=== PATIENT | female | born 1990 | race Caucasian/White ===

== ENCOUNTER 2016-11-10 08:58 | Outpatient (CLI) | payer OTHER ==
[2016-11-10 09:23] LABS: BILIRUBIN,URINE NEGATIVE (NEGATIVE)
[2016-11-10 09:34] LABS: WBC,URINE 0-3 /HPF (0-5)
[2016-11-10 10:29] LABS: BASOPHILS % (AUTO) 0.5 %; EOSINOPHILS # (AUTO) 0.1 10^3/uL (0.0-0.7); EOSINOPHILS % (AUTO) 1.6 %; HCT - HEMATOCRIT 38.2 % (37.0-47.0); HGB - HEMOGLOBIN 12.9 g/dL (12.0-16.0); LYMPHOCYTES % (AUTO) 25.7 %; MEAN CORPUSCULAR HEMOGLOBIN 28.3 pg (27.0-31.0); MEAN CORPUSCULAR HGB CONC 33.8 g/dL (32.0-36.0); MEAN CORPUSCULAR VOLUME 83.8 fL (81.0-99.0); MEAN PLATELET VOLUME 7.3 fL (7.9-10.8); MONOCYTES # (AUTO) 0.4 10^3/uL (0.0-1.0); MONOCYTES % (AUTO) 5.1 %; NEUTROPHILS # (AUTO) 5.2 10^3/uL (1.5-6.6); NEUTROPHILS % (AUTO) 67.1 %; RED BLOOD COUNT 4.57 10^6/uL (4.20-5.40); RED CELL DISTRIBUTION WIDTH 14.9 % (12.0-15.0); UNCORRECTED WHITE BLOOD COUNT 7.8 x10^3/uL; WHITE BLOOD COUNT 7.8 x10^3/uL (4.8-10.8)
[2016-11-10 10:47] LABS: HEMOGLOBIN A1C 0.49 g/dL
[2016-11-10 11:06] LABS: URIC ACID 2.6 mg/dL (2.6-7.2)
[2016-11-15 20:31] LABS: TEST RESULT REPORT
== END 2016-11-10 08:59 | disposition home or self-care (01) ==
LOC: LAB 08:58
PROVIDERS: ATTEND Obstetrics & Gynecology
DX: Z36 Encounter for antenatal screening of mother (principal); R80.9 Proteinuria, unspecified
CPT/HCPCS: 36415; 81001; 81599; 82570; 82950; 83036; 83615; 84156; 84450; 84460; 84550; 85025; 86762; 86780; 86850; 86900; 86901; 87340; 87389

== ENCOUNTER 2016-11-23 09:39 | Outpatient (CLI) | payer OTHER | END 2016-11-23 09:40 | disposition home or self-care (01) | LOC: LAB.R 09:39 | PROVIDERS: ATTEND Obstetrics & Gynecology | DX: Z11.3 Encounter for screening for infections with a predominantly sexual mode of transmission (principal) | CPT/HCPCS: 87491; 87591 ==

== ENCOUNTER 2016-12-21 09:45 | Outpatient (CLI) | payer OTHER ==
[2016-12-22 12:51] LABS: TEST RESULT REPORT
== END 2016-12-21 09:46 | disposition home or self-care (01) ==
LOC: LAB 09:45
PROVIDERS: ATTEND Obstetrics & Gynecology
DX: Z3A.15 15 weeks gestation of pregnancy (principal)
CPT/HCPCS: 36415; 81599

== ENCOUNTER 2017-04-03 11:02 | Outpatient (CLI) | payer OTHER ==
--- NOTE | 2017-04-05 15:46 | Ultrasound Report ---
OB FOLLOWUP: 04/03/2017 CLINICAL INDICATION: Size greater than dates. COMPARISON: 01/23/2017 TECHNIQUE: Real-time scanning was performed with sales representative consultant static images obtained. LAST MENSTRUAL PERIOD 09/03/2016 CLINICAL AGE 30 weeks 2 days US AGE 32 weeks 1 day EFW HADLOCK 1857 grams EFW% HADLOCK 87% HEART RATE 159 bpm EDC 06/10/2017 US EDC 05/28/2017 BPD HADLOCK 31 weeks 5 days; Mean mm 79 HC HADLOCK 33 weeks 2 days; Mean mm 300 AC HADLOCK 31 weeks 4 days; Mean mm 275 FL HADLOCK 32 weeks 0 days; Mean mm 62 PRESENTATION cephalic. PLACENTAL LOCATION posterior. CERVICAL LENGTH -- AMNIOTIC FLUID 12.2 cm; MVP 3.2 cm FINDINGS There is a single viable intrauterine gestation, in cephalic presentation. heart rate is 159 BPM. The placenta is posterior, without evidence of previa. Amniotic fluid volume is normal, with an ALLAN of 12.2. By size, the fetus measures 32 weeks 1 day (30 weeks 2 days by previous sonogram ). Estimated weight by Hadlock method is 1857 grams. IMPRESSION: SINGLE VIABLE INTRAUTERINE GESTATION, MEASURING 1 WEEK 6 DAYS LARGER THAN EXPECTED BY PREVIOUS SONOGRAM. NORMAL ALLAN. TD: 04[facility]03/2017 17:18 [facility]
== END 2017-04-03 11:03 | disposition home or self-care (01) ==
LOC: DI 11:02
PROVIDERS: ATTEND Obstetrics & Gynecology
DX: O26.843 Uterine size-date discrepancy, third trimester (principal)
CPT/HCPCS: 76816

== ENCOUNTER 2017-04-13 07:28 | Outpatient (CLI) | payer OTHER | END 2017-04-13 07:29 | disposition home or self-care (01) | LOC: LAB 07:28 | PROVIDERS: ATTEND Obstetrics & Gynecology | DX: O99.810 Abnormal glucose complicating pregnancy (principal) | CPT/HCPCS: 36415; 82951 ==

== ENCOUNTER 2017-05-07 08:00 | Outpatient (CLI) | payer OTHER | END 2017-05-07 08:01 | LOC: LAB.R 08:00 | PROVIDERS: ATTEND Obstetrics & Gynecology | DX: Z36.85 Encounter for antenatal screening for Streptococcus B (principal) | CPT/HCPCS: 87081 ==

== ENCOUNTER 2017-06-01 18:02 | Inpatient (IN) | payer OTHER ==
[2017-06-01] MEDS ORDERED: SODIUM CHLORIDE FLUSH 0.9% 10 ML SYRINGE IVP PRN (19:14)
[2017-06-01] MEDS ORDERED: ONDANSETRON 4 MG/2 ML VIAL IVP PRN (19:14)
[2017-06-01] MEDS ORDERED: fentaNYL 100 MCG/2 ML VIAL IVP PRN (19:14)
[2017-06-01] MEDS ORDERED: DINOPROSTONE 10 MG SUPP VG ONE (19:14)
[2017-06-01] MEDS ORDERED: ZOLPIDEM 5 MG TABLET PO PRN (19:17)
--- NOTE | 2017-06-01 19:43 | PROVIDER PROGRESS NOTE ---
Labor Progress Note - Uterine Monitoring Uterine Monitoring Mode: positive: External toco Contraction Frequency (min/apart): Irregular Contraction Intensity: positive: Mild to moderate Uterine Resting Tone: positive: Soft - Monitoring Monitor Mode: positive: External ultrasound Heart Rate Baseline: 140's Heart Rate Variability: positive: Moderate (6-25 bmp) Accelerations: positive: Present, 15x15 Decelerations: positive: None Strip Review: positive: Category I - Labor Progress Note Labor Progress Note/Additional Text: 27 yo with a 39w0d IUP. Elective induction of labor. Cervix remote from delivery. Will proceed to induction of labor with cervidil. H&P was dictated 05/28/2017 (Reference number [id number]) and not showing up on [employer]. Draw CBC with type and hold. Epidural prior to AROM. Expect .
[2017-06-01] MEDS: LACTATED RINGERS 1,000 ML IV SCH (21:24)
[2017-06-01] MEDS: SODIUM CHLORIDE FLUSH 0.9% 10 ML SYRINGE IVP SCH (21:26)
[2017-06-01 21:48] LABS: BASOPHILS % (AUTO) 0.3 %; EOSINOPHILS # (AUTO) 0.1 10^3/uL (0.0-0.7); EOSINOPHILS % (AUTO) 1.2 %; HGB - HEMOGLOBIN 12.8 g/dL (12.0-16.0); LYMPHOCYTES # (AUTO) 2.3 10^3/uL (1.5-3.5); LYMPHOCYTES % (AUTO) 26.4 %; MEAN CORPUSCULAR HEMOGLOBIN 28.3 pg (27.0-31.0); MEAN CORPUSCULAR HGB CONC 33.5 g/dL (32.0-36.0); MEAN CORPUSCULAR VOLUME 84.3 fL (81.0-99.0); MEAN PLATELET VOLUME 7.6 fL (7.9-10.8); MONOCYTES # (AUTO) 0.6 10^3/uL (0.0-1.0); MONOCYTES % (AUTO) 7.3 %; NEUTROPHILS # (AUTO) 5.7 10^3/uL (1.5-6.6); NEUTROPHILS % (AUTO) 64.8 %; PLT - PLATELET COUNT 198 10^3/uL (130-450); RED BLOOD COUNT 4.51 10^6/uL (4.20-5.40); RED CELL DISTRIBUTION WIDTH 24.1 % (12.0-15.0); WHITE BLOOD COUNT 8.8 x10^3/uL (4.8-10.8)
[2017-06-01 22:05] LABS: PLATELET ESTIMATE, MANUAL NORMAL (130-450,000) (NORMAL); PLATELET MORPHOLOGY NORMAL APPEARANCE (NORMAL)
--- NOTE | 2017-06-02 06:01 | PROVIDER PROGRESS NOTE ---
Labor Progress Note - Uterine Monitoring Uterine Monitoring Mode: positive: External toco Contraction Frequency (min/apart): Q4 Contraction Intensity: positive: Mild to moderate Uterine Resting Tone: positive: Soft - Monitoring Monitor Mode: positive: External ultrasound Heart Rate Baseline: 130's Heart Rate Variability: positive: Moderate (6-25 bmp) Accelerations: positive: Present, 15x15 Decelerations: positive: None Strip Review: positive: Category I - Vaginal Exam Dilation (in cm): 1 (Per RN 22:00) Effacement (%): 50 Station: -2 Cervical Position: Posterior - Labor Progress Note Labor Progress Note/Additional Text: 27 yo with a 39w0d IUP Desired induction of labor Reassuring maternal and status Cervix remote from delivery Cervidil placed by RN at 22:18 Expect Still looking for 05/28/2017 H&P dictation- reference number [id number] Labs, EKG, Meds, Allergy - Lab Results Fish Bones: 06/01/17 21:15 Other Lab Results: Lab Results x24hrs 06/01/17 Range/Units 21:15 WBC 8.8 (4.8-10.8) x10^3/uL RBC 4.51 (4.20-5.40) 10^6/uL Hgb 12.8 (12.0-16.0) g/dL Hct 38.1 (37.0-47.0) % MCV 84.3 (81.0-99.0) fL MCH 28.3 (27.0-31.0) pg MCHC 33.5 (32.0-36.0) g/dL RDW 24.1 H (12.0-15.0) % Plt Count 198 (130-450) 10^3/uL MPV 7.6 L (7.9-10.8) fL Neut # 5.7 (1.5-6.6) 10^3/uL Lymph # 2.3 (1.5-3.5) 10^3/uL Converse # 0.6 (0.0-1.0) 10^3/uL Eos # 0.1 (0.0-0.7) 10^3/uL Baso # 0.0 (0.0-0.1) 10^3/uL Absolute Nucleated RBC 0.00 x10^3/uL Nucleated RBC % 0.0 /100WBC Platelet Estimate NORMAL (130-450,000) (NORMAL) Platelet Morphology NORMAL APPEARANCE (NORMAL) RBC Morph Micro Appear 1+ SCHISTOCYTES (NORMAL) - Medications Medications: Ambulatory Orders Medication Instructions Recorded Confirmed Pnv95/Ferrous Fumarate/FA 02/20/14 02/20/14 [ Multivitamins Tablet] cephALEXin [Cephalexin] 500 mg PO QID #28 tablet 11/19/15 - Allergy Allergy: Allergies Allergy/AdvReac Type Severity Reaction Status Date / Time No Known Drug Allergies Allergy Verified 02/20/14 16:23 Pnv95/Ferrous Fumarate/FA [ Multivitamins Tablet] 02/20/14 cephALEXin [Cephalexin] 500 mg PO QID #28 tablet 11/19/15
[2017-06-02] MEDS: LACTATED RINGERS 1,000 ML IV SCH (10:09)
--- NOTE | 2017-06-02 10:54 | PROVIDER PROGRESS NOTE ---
Labor Progress Note - Uterine Monitoring Uterine Monitoring Mode: positive: External toco Contraction Frequency (min/apart): Irregular (difficult to interpret) Contraction Intensity: positive: Mild to moderate Uterine Resting Tone: positive: Soft - Monitoring Monitor Mode: positive: External ultrasound Heart Rate Variability: positive: Moderate (6-25 bmp) Accelerations: positive: Present, 15x15 Decelerations: positive: None Strip Review: positive: Category I - Vaginal Exam Dilation (in cm): 3 (Per RN) Effacement (%): 80 Station: -2 - Labor Progress Note Labor Progress Note/Additional Text: 27 yo with a 39w0d IUP Elective induction of labor Improved cervical change Start pitocin Expect Reassuring and maternal status
[2017-06-02] MEDS ORDERED: OXYTOCIN/SODIUM CHLORIDE 500 ML IV SCH (11:00)
[2017-06-02] MEDS: SODIUM CHLORIDE FLUSH 0.9% 10 ML SYRINGE IVP SCH (13:19)
--- NOTE | 2017-06-02 16:35 | PREOP HISTORY & PHYSICAL ---
DATE OF ADMISSION: 06/01/2017 Physician: Maryam Bran DO IDENTIFICATION: A 27-year-old G7, P4, 0-2-4 with a 38-6/7-week intrauterine . EDC is 06/09/2017. HISTORY OF PRESENT ILLNESS: Patient is a patient of [facility] who presented for routine visit on 05/28/2017. Patient's has been essentially unremarkable. However, in the last few weeks she has been having a difficult time with respect to back pain and getting satisfactory sleep secondary to the baby making her body feel very uncomfortable. At this point in time patient would like to proceed with elective induction of labor at about 39 weeks' gestation. She states that the baby, who is female, with anticipated name of Franc, is moving well. She denies any vaginal bleeding or loss of fluid. She has been having irregular contractions. Cervical examination today on 05/28/2017 at 38 weeks 2 days revealed that she is 1-2 cm dilated, very thick, and -3 station. Discussed with patient her options to do cervical ripening on the evening of 06/01/2017 and will begin to start Pitocin or rupture of membranes hopefully on 06/02/2017. After all her questions were asked and answered to her satisfaction, she verbalized her desire to proceed with induction of labor. PAST MEDICAL HISTORY: History of gestational hypertension, but this has resolved after completion of her . PAST SURGICAL HISTORY: None. ALLERGIES: NO KNOWN DRUG ALLERGIES. MEDICATIONS: vitamins. SOCIAL HISTORY: She denied any tobacco, alcohol, or illicit drug use. She is a homemaker, and she is to Mainor, who is in the [place]. They have 4 other children, daughters, Ganga, Janet, and Hayden. The youngest child currently is a little boy named Chris. Patient and her family anticipated to have their next 3-year assignment in [place], [place]. They anticipate moving in July of this year. Patient's pharmacy of choice is [facility] in [place], [place]. PAST OBSTETRICAL HISTORY: Two spontaneous abortions and 4 term spontaneous vaginal deliveries, the largest baby weighing 7 pounds 14 ounces at time of delivery. Patient did have a history of mastitis. PAST GYNECOLOGICAL HISTORY: She denied any abnormal Pap smears or sexually transmitted disease. FAMILY HISTORY: She denied any female carcinoma. REVIEW OF SYSTEMS: Negative unless otherwise stated. She does deny any nausea , vomiting, fevers, chills, diarrhea, constipation. OBJECTIVE VITAL SIGNS: Height 63 inches, weight 201 pounds, BMI is 35.6, blood pressure 136/80. GENERAL: Patient is a well-developed, well-nourished, female, in no apparent distress. She is alert and oriented x3. She is very pleasant and easy to speak to. CARDIOVASCULAR: Rate is regular. No murmurs, rubs. PULMONARY: Lungs are clear to auscultation bilaterally. ABDOMEN: Gravid, nontender. Fundal height today is 38 cm, which is consistent with her being 38 weeks' gestation. Fetus is vertex by Mando's. EFW is 8 pounds. CERVICAL: Cervical examination again reveals she is 1-2 cm dilated, very thick and -3 station. Cervix is moderately soft to firm. It is posterior. records reveal her blood type is O positive, antibody screen negative. HIV negative. Hepatitis B surface antigen is negative. RPR nonreactive, rubella immune, GBS is negative. anatomical survey is consistent with dates and within normal limits. There is no placenta previa. Her 1-hour GTT was 129 and her 3-hour showed a fasting of 83, 1 hour of 195, 2-hour 155, and 3- hour of 98. Hemoglobin A1c was 5.4%. Her fasting sugars have been in the 70s- 80s and 2-hour postprandials are in the 100s. ASSESSMENT 1. A 27-year-old G7, P4-0-2-4 with a 38-6/7-week intrauterine . 2. Gestational diabetes mellitus, class A1. 3. Desires induction of labor. 4. Cervix remote from delivery. PLAN 1. We will proceed to elective induction of labor with Cervidil on 06/01/2017. 2. Anticipate starting Pitocin once her cervix has effaced. Expect spontaneous vaginal delivery. 3. Will be cautious of patient getting mastitis. May want to consider placing her on prophylactic dicloxacillin. TD: 05/28/2017 16:28 [facility]
--- NOTE | 2017-06-02 17:49 | PROVIDER PROGRESS NOTE ---
Labor Progress Note - Uterine Monitoring Uterine Monitoring Mode: positive: External toco Contraction Frequency (min/apart): Q2-3 (pitocin 6 mU/min) Contraction Intensity: positive: Mild to moderate Uterine Resting Tone: positive: Soft - Monitoring Monitor Mode: positive: External ultrasound Heart Rate Variability: positive: Moderate (6-25 bmp) Accelerations: positive: Present, 15x15 Decelerations: positive: None - Vaginal Exam Dilation (in cm): 3 Effacement (%): 50 Station: -2 Cervical Position: Posterior - Labor Progress Note Labor Progress Note/Additional Text: 27 yo with a 39w0d IUP Improved cervical change after 1 dose of cytotec and pitocin AROM- clear fluid Expect
--- NOTE | 2017-06-02 21:06 | PROVIDER PROGRESS NOTE ---
Labor Progress Note - Uterine Monitoring Uterine Monitoring Mode: positive: External toco Contraction Frequency (min/apart): Q 2-4 min Contraction Intensity: positive: Moderate to strong - Monitoring Monitor Mode: positive: External ultrasound Heart Rate Baseline: 130's Heart Rate Variability: positive: Moderate (6-25 bmp) Accelerations: positive: Present, 15x15 Decelerations: positive: None Strip Review: positive: Category I - Vaginal Exam Dilation (in cm): (Deferred) - Labor Progress Note Labor Progress Note/Additional Text: 27 yo with a 39w0d IUP Elective induction of labor AROM- clear fluid. No S/s of chorioamnionitis Continue pitocin Expect
[2017-06-02] MEDS ORDERED: MAGNESIUM HYDROXIDE 2,400 MG/30 ML UDC PO PRN (22:34)
[2017-06-02] MEDS ORDERED: HYDROcod/ACETAM 5/325 MG TABLET PO PRN (22:34)
[2017-06-02] MEDS ORDERED: OXYTOCIN/SODIUM CHLORIDE 250 ML IV ONE (22:34)
--- NOTE | 2017-06-02 22:34 | DELIVERY NOTE ---
Delivery Note - Labor Labor: positive: Augmented by ARM, Augmented by oxytocin - Infant Delivery Method Delivery Method: positive: Spontaneous vaginal delivery - Presentation Presentation: positive: Vertex - Nuchal Cord Nuchal Cord: positive: None - Amniotic Fluid Description Amniotic Fluid Description: positive: Clear - Episiotomy Type Episiotomy Type: positive: None - Laceration Laceration: positive: None - Delivery Outcome Delivery Outcome: positive: Livebirth - [place] Lancaster sex: positive: Female : 9 : 9 - Cord Cord: positive: 3 vessels - Placenta Placenta: positive: Intact, Spontaneous - Estimated Blood Loss Estimated Blood Loss (in cc): 100 - Post Delivery Events Post Delivery Events: positive: No post delivery events - Delivery Comments (Free Text/Narrative) Delivery Comments (Free Text/Narrative): 27 yo with a 38w6d IUP was electively induced. Given 1 dose of cervidil overnight, pitocin the next day, and then AROM. Patient delivered without pain meds. order to delivery supervisor. Intact perineum. Placenta delivered spontaneously, intact with 3VC. EBL 100 mL. Apgars 9/9. No complications.
[2017-06-02] MEDS ORDERED: LACTATED RINGERS 1,000 ML IV SCH (23:00)
[2017-06-02] MEDS: ACETAMINOPHEN 325 MG TABLET PO PRN (23:34)
[2017-06-03] MEDS: ACETAMINOPHEN 325 MG TABLET PO PRN ×3 (04:02→18:19)
[2017-06-03] MEDS: DOCUSATE SODIUM 100 MG CAPSULE PO SCH ×2 (09:19→22:42)
[2017-06-03] MEDS: LACTATED RINGERS 1,000 ML IV SCH ×2 (10:18)
[2017-06-03] MEDS: CELECOXIB 100 MG CAPSULE PO SCH ×2 (10:19→22:48)
--- NOTE | 2017-06-03 13:14 | PROVIDER PROGRESS NOTE ---
Subjective - Prog Note Date Prog Note Date: 06/03/17 Prog Note Time: 13:11 - Subjective Pt reports feeling: Improved Subjective: Patient lying in bed. Bed uncomfortable and not sleeping well. Pain well controlled. Light lochia. Ambulating and tolerating a regular diet. Urinating without difficulty. Baby had an episode of apnea so Dr. Parrish would like to watch baby Faye overnight. Objective - Vital Signs/Intake & Output Reviewed Vital Signs: Yes Vital Signs: Vital Signs x48h Temp Pulse Resp BP Pulse Ox 06/03/17 12:15 98.2 F 71 16 125/77 99 06/03/17 08:00 98.2 F 70 16 126/71 100 Intake & Output: Intake & Output 05/31/17 06/01/17 06/02/17 06/03/17 23:59 23:59 23:59 23:59 Intake Total 150 2456.25 451.667 Output Total 575 Balance 150 2456.25 -123.333 - Objective General Appearance: positive: No acute distress Eyes Bilateral: positive: Normal inspection Abdomen: positive: Non-tender (Firm fundus) Extremities: positive: Non-tender Neurologic/Psychiatric: positive: Oriented x3 - Lab Results Fish Bones: 06/01/17 21:15 Assessment/Plan - Problem List (1) Vaginal delivery Impression: 27 yo S/p 06/02/2017, PPD#1 Normal recovery Routine care Anticipate home tomorrow AM Discharge dictation [id number]
[2017-06-04] MEDS: ACETAMINOPHEN 325 MG TABLET PO PRN ×2 (00:06→06:07)
--- NOTE | 2017-06-04 08:25 | PROVIDER PROGRESS NOTE ---
Subjective - Prog Note Date Prog Note Date: 06/04/17 Prog Note Time: 08:22 - Subjective Pt reports feeling: Improved Subjective: Patient doing well. Sitting in bed with baby Faye. Nayan asleep in visitor's bed; took the nightshift. Rohit able to sleep last night. Doing well and without complaints. Still desires to go home. Objective - Vital Signs/Intake & Output Reviewed Vital Signs: Yes Vital Signs: Vital Signs x48h Temp Pulse Resp BP Pulse Ox 06/04/17 06:08 97.9 F 61 16 133/69 H 100 Intake & Output: Intake & Output 06/01/17 06/02/17 06/03/17 06/04/17 23:59 23:59 23:59 23:59 Intake Total 150 2456.25 1000.000 Output Total 575 Balance 150 2456.25 425.000 - Objective General Appearance: positive: No acute distress Eyes Bilateral: positive: Normal inspection Abdomen: positive: Non-tender (Firm fundus) Skin: positive: Color nml Extremities: positive: Non-tender Neurologic/Psychiatric: positive: Oriented x3 - Lab Results Fish Bones: 06/01/17 21:15 Assessment/Plan - Problem List (1) Vaginal delivery Impression: 27 yo S/p 06/02/2017, PPD #2 Normal recovery Routine care Discharge to home today Rx motrin and colace faxed to [facility] Handwritten Rx for vicodin ready Follow up in 3 and 8 weeks with me No lifting > 10 lbs Call for worsening fevers, chills, abdominal pain or vaginal bleeding Discharge Plan Disposition: 01 Home, Self Care Condition: Good Diet: Regular Activity Restrictions: Activity as Tolerated Shower Restrictions: No Weight Bearing: Full Weight No Smoking: If you smoke, Please STOP! Call for help.
[2017-06-04 11:26] VITALS: BP 127/79
[2017-06-04] MEDS: DOCUSATE SODIUM 100 MG CAPSULE PO SCH (11:27)
[2017-06-04] MEDS: CELECOXIB 100 MG CAPSULE PO SCH (11:27)
--- NOTE | 2017-06-04 11:37 | Labor Flowsheet ---
Labor Flowsheet Datetime Report Generated by CPN: 06/04/2017 11:36 Datetime: 06/04/2017 07:57 VITAL SIGNS NBP Sys/Kelly/Mean (mmHg): 127 : 79 : 89 Pulse: 65 LaborFlag: Labor Datetime: 06/04/2017 06:04 SpO2 (%): 100 Datetime: 06/02/2017 22:10 COMMUNICATION Communication: Provider at Bedside Notification Reason: Labor Status Nurse Giving Report: O'Wolfgang RN Datetime: 06/02/2017 22:05 STAGE 2 Pushing: Urge to Push Pushing Position: Pushing with Contractions; Pushing Lithotomy Pushing Progress: Descent with Pushing; with Pushing; Pushing Effectively with Contraction s Stage 2 Comments: Baby delivered at 2204 Datetime: 06/02/2017 22:03 VAGINAL EXAM Dilatation (cm): 10.0 Effacement (%): 100 Exam by: Maggi [facility] Vaginal Bleeding: Normal Show Cervix, Consistency: Soft Vaginal Exam Comments: Pt complete and Datetime: 06/02/2017 22:00 UTERINE ACTIVITY Monitor Mode: External Frequency (min): 2-3 Duration (sec): 40-100 Pattern: Normal: <= 5 Contractions in 10 Minutes Resting Tone (Palpate): Relaxed Pitocin Checklist: At Least 1 Acceleration of 15 bpm x 15 Seconds in 30 Minutes or Adequate Variabi lity ASSESSMENT A Monitor Mode: Telemetry FHR Baseline Rate : 125 Variability: Moderate 6-25 bpm Accelerations: 15X15 Decelerations: Early; Variable Category: Category II Oxygen Method: Room Air Datetime: 06/02/2017 21:57 PAIN Pain Scale: 10 Pain Type: Contraction Pain Location: Abdomen Pain Coping: Breathing Through Contractions Comfort Measures: Breathing/Relaxation Datetime: 06/02/2017 21:56 Respirations: 18 Temperature (C): 36.9 Datetime: 06/02/2017 21:45 Station: -1 Cervix, Position: Midposition Datetime: 06/02/2017 21:00 Stage of : Labor Provider Reviewed Strip: Yes Communication Comments: DrPoli Bran here Datetime: 06/02/2017 20:30 Quality: Strong MEDICATIONS Pitocin (milliunits): Increased to @ 10 Datetime: 06/02/2017 20:03 Temperature Route: Oral Datetime: 06/02/2017 19:36 MATERNAL ASSESSMENT Level of Consciousness: Fully Conscious Headache: Denies Breath Sounds, Left: Clear and Equal Breath Sounds, Right: Clear and Equal Nausea/Vomiting: Denies RUQ Epigastric Pain: Denies Datetime: 06/02/2017 19:33 Hygiene: [facility]; [facility] Changed I/O Interventions: Up to BR Patient Care Comments: 1 void Datetime: 06/02/2017 18:00 Medication Comments: Pt states discomfort of 5/10 with ctxs. Desires natural , unmedicated Datetime: 06/02/2017 17:38 Membrane Status: Ruptured Membranes Rupture Method: Artificial Amniotic Fluid Color: Clear Amniotic Fluid Amount: Small Amniotic Fluid Odor: Normal Membrane Comments: AROM per Dr Bran Datetime: 06/02/2017 17:25 Patient Position/Activity: Walking Datetime: 06/02/2017 16:13 Monitor Interventions for FHR: Ultrasound Adjusted Datetime: 06/02/2017 16:11 Provider Notified (Name): DrPoli Millern Datetime: 06/02/2017 16:06 Comments: searching for FHTs Datetime: 06/02/2017 12:00 FHR Baseline Changes: No Baseline Change Datetime: 06/02/2017 10:44 Strip Reviewed by: Dr. Jude Datetime: 06/02/2017 10:09 PATIENT CARE IV/Blood Work: New IV Bag Hung; IV Bag Number @ 2
--- NOTE | 2017-06-04 12:27 | DISCHARGE SUMMARY ---
Physician: Maryam Bran DO FACOG DATE OF ADMISSION: 06/01/2017 DATE OF DISCHARGE: 06/04/2017 DIAGNOSES ON ADMISSION 1. A 27-year-old G7, P4-0-2-4 with a 38-6/7-week intrauterine . 2. Desired elective induction of labor. 3. Cervix remote from delivery. DIAGNOSES ON DISCHARGE 1. A 27-year-old G7, P5-0-2-5, status post spontaneous vaginal delivery on . 2. Normal recovery. HISTORY OF PRESENT ILLNESS: Patient is a patient at [facility] who presented on 06/01/2017 for elective induction of labor. She received Cervidil and later Pitocin. Artificial rupture of membranes revealed clear fluid. Patient had a precipitous labor as the nurse checked her cervix, and she was found to be 5 cm dilated. Shortly after that cervical examination, patient felt a lot of pelvic pain and delivered the baby on the bed. Apgars were 9 and 9 at one and five minutes respectively. The perineum was intact, and the placenta delivered spontaneously intact with a 3-vessel cord. Baby Faye weighed about 8 pounds. There were no complications, and EBL was 100 mL. Patient's course has been unremarkable. She is ambulating and tolerating a regular diet. She is urinating without difficulty and her pain was controlled with oral medications. Faye will be discharged to home on , mainly because Baby Faye had an episode of apnea in the evening of her . Patient will be recommended to not do any heavy lifting, specifically anything greater than a gallon of milk. [facility] and a handwritten prescription for Vicodin is available for patient should she choose to use this medication. FOLLOWUP: Patient is see me in 3 and 8 weeks for routine followup. Patient is to call should she have any worsening fevers, chills, abdominal pain , or vaginal bleeding. TD: 06/03/2017 22:17 MTDD
== END 2017-06-04 10:30 | disposition home or self-care (01) | DRG 775 ==
LOC: WFO 18:02 → FBP 18:04 → WFO 21:59 → FBP 22:00 → OBSVTOIN 06-02 13:50
PROVIDERS: ADMIT Obstetrics & Gynecology; ATTEND Obstetrics & Gynecology
PROC: 3E0P7VZ Introduction of Hormone into Female Reproductive, Via Natural or Artificial Opening (ICD-10-PCS; 2017-06-01)
PROC: 10E0XZZ Delivery of Products of Conception, External Approach (ICD-10-PCS; principal; 2017-06-02)
PROC: 10907ZC Drainage of Amniotic Fluid, Therapeutic from Products of Conception, Via Natural or Artificial Opening (ICD-10-PCS; 2017-06-02)
DX: O24.429 Gestational diabetes mellitus in childbirth, unspecified control (principal); O62.3 Precipitate labor; Z37.0 Single live birth; Z3A.39 39 weeks gestation of pregnancy; Z86.79 Personal history of other diseases of the circulatory system
CPT/HCPCS: 59200; 85025